=== PATIENT | female | born 1965 | race Caucasian/White ===

== ENCOUNTER → 2020-10-10 | Day surgery (SDC) | payer OTHER ==
[~2020-10-10] VITALS: Ht 162.6 cm; Wt 90.7 kg
[~2020-10-10] MED LIST: AJOVY225 MG/1.5 SQ; AMITIZA 24 MCG24 MCG PO; ATORVASTATIN CA40 MG PO; COZAAR 50MG TAB50 MG PO; DESYREL 50 MG T50 MG PO; ELAVIL 25 MG TA25 MG PO; EMGALITY S120 MG/1 M SQ; GABAPENTIN400 MG PO; KLONOPIN TAB 00.5 MG PO; LACTULOSE10 GM/151 PO; LINZESS145 MCG PO; METHYLPREDNISOLO4 MG PO; MYCOSTATIN CREA15 GM TOP; NEURONTIN400 MG PO; OMEPRAZOLE40 MG PO; PERCOCET 5/325 T1 EA PO; PHENERGAN 25 MG25 M1 PO; PROAIR DIGIHAL90 MCG INH; RELPAX40 MG PO; REQUIP4 MG PO; SYNTHROID25 MCG PO; TOPAMAX50 MG PO; TRAMADOL HCL50 MG PO; UBRELVY100 MG PO; ULTRAM50 MG PO; VASCEPA1 GM PO; VISTARIL25 MG PO; VITAMIN D250000 UNIT PO; VITAMIN D3125 MCG PO; ZANAFLEX4 MG PO; ZOLOFT50 MG PO
== END | disposition home or self-care (01) ==
LOC: OR 05:45
DX: K29.50 Unspecified chronic gastritis without bleeding (principal); K44.9 Diaphragmatic hernia without obstruction or gangrene; E03.9 Hypothyroidism, unspecified; E78.5 Hyperlipidemia, unspecified; K21.9 Gastro-esophageal reflux disease without esophagitis; F41.9 Anxiety disorder, unspecified; G43.009 Migraine without aura, not intractable, without status migrainosus; K76.0 Fatty (change of) liver, not elsewhere classified; Z88.2 Allergy status to sulfonamides; Z20.822 Contact with and (suspected) exposure to COVID-19; E66.01 Morbid (severe) obesity due to excess calories; F32.9 Major depressive disorder, single episode, unspecified; Z68.35 Body mass index [BMI] 35.0-35.9, adult
CPT/HCPCS: J2704; J7030

== ENCOUNTER → 2020-11-10 | Outpatient (CLI) | payer OTHER | LOC: HEART 5 10:09 | DX: R05 Cough (principal) | CPT/HCPCS: 94010 ==

== ENCOUNTER → 2021-07-31 | Outpatient (CLI) | payer OTHER ==
[2021-07-31 16:11] LABS: BUN/CREATININE RATIO 13 (0-10)
== END ==
LOC: LAB 15:13
PROVIDERS: Internal Medicine Nephrology; Nurse Practitioner Family
DX: N18.30 Chronic kidney disease, stage 3 unspecified (principal); R73.09 Other abnormal glucose
CPT/HCPCS: 36415; 80053; 81001; 82043; 82570; 83036; 84156

== ENCOUNTER → 2021-10-02 | Outpatient (CLI) | payer OTHER | LOC: KOH-I 12:28 | DX: R59.0 Localized enlarged lymph nodes (principal) | CPT/HCPCS: 76536 ==